=== PATIENT | female | born 1975 ===

== ENCOUNTER 2018-08-04 05:20 | Emergency (ER) | payer SELFPAY | END 2018-08-04 05:28 | disposition left against medical advice (07) | LOC: ED 05:25 | DX: H92.03 Otalgia, bilateral (principal); Z53.21 Procedure and treatment not carried out due to patient leaving prior to being seen by health care provider ==

== ENCOUNTER 2019-09-10 17:58 | Emergency (ER) | payer SELFPAY ==
[~2019-09-10] VITALS: Ht 154.9 cm; Wt 88.2 kg
[2019-09-10 18:09] VITALS: BP 124/79
== END 2019-09-10 19:04 | disposition left against medical advice (07) ==
LOC: ED 18:45
DX: N93.9 Abnormal uterine and vaginal bleeding, unspecified (principal); R10.9 Unspecified abdominal pain; M54.5 Low back pain; Z53.21 Procedure and treatment not carried out due to patient leaving prior to being seen by health care provider

== ENCOUNTER 2019-11-04 17:00 | Emergency (ER) | payer SELFPAY ==
[~2019-11-04] VITALS: Ht 154.9 cm; Wt 89.1 kg
[2019-11-04 17:02] VITALS: BP 126/76
--- NOTE | 2019-11-04 17:13 | NUR ---
ASSUMED CARE OF PATIENT. PATIENT REPORTS SHE HAS A TAMPON IN THAT SHE CAN'T REACH. "IT SMELLS REALLY BAD." VS STABLE. NO ACUTE DISTRESS NOTED. WILL CONTINUE TO MONITOR.
--- NOTE | 2019-11-04 17:55 | NUR ---
PT RESTING IN ROOM. NO ACUTE DISTRESS NOTED. CALL LIGHT IN PLACE. WILL CONTINUE TO MONITOR.
== END 2019-11-04 18:32 | disposition home or self-care (01) ==
LOC: ED 18:19
DX: T19.2XXA Foreign body in vulva and vagina, initial encounter (principal); X58.XXXA Exposure to other specified factors, initial encounter; Y93.89 Activity, other specified; Y92.89 Other specified places as the place of occurrence of the external cause; Y99.8 Other external cause status
CPT/HCPCS: 99283